=== PATIENT | female | born 1960 | race Two or more races ===

== ENCOUNTER → 2017-10-07 | Outpatient (CLI) | payer BC ==
[~2017-10-07] MED LIST: BCP; LIS5T PO
[2017-10-07 09:21] LABS: Basophils # (auto) 0.1 uL; Basophils % (auto) 0.9 % (0.0-2.0); Eosinophils # (auto) 0.2 uL; Eosinophils % (auto) 2.8 % (0.0-7.0); Hematocrit 39.6 % (36.0-46.0); Hemoglobin 13.2 g/dL (12.2-16.2); Lymphocytes # (auto) 1.7 uL; Lymphocytes % (auto) 26.2 % (10.0-50.0); Mean Corpuscular Hemoglobin 27.4 pg (28.0-32.0); Mean Corpuscular Hgb Conc. 33.4 g/dL (32.0-36.0); Mean Corpuscular Volume 82.2 fL (80.0-100.0); Monocytes # (auto) 0.3 uL; Monocytes % (auto) 4.4 % (0.0-12.0); Neutrophils # (auto) 4.4 uL; Neutrophils % (auto) 65.7 % (37.0-80.0); Nucleated Red Blood Cells % 0.1 %; Platelet Count (auto) 293 10^3/uL (140-450); Red Blood Cells 4.82 10^6/uL (4.0-5.20); Red Cell Distribution Width 14.4 % (11.8-14.3); White Blood Cell 6.7 10^3/uL (4.4-10.8)
[2017-10-07 09:25] LABS: Urine Bacteria NONE SEEN /hpf (None Seen); Urine Blood Negative /uL (Negative); Urine Specific Gravity 1.019 (1.001-1.035); Urine WBC 1 /hpf (0 - 5)
[2017-10-07 10:12] LABS: Cholesterol 205 mg/dL (< 200); HDL Cholesterol 42 mg/dL (40-59); LDL Cholesterol 146 mg/dL (< 100); Triglycerides 182 mg/dL (< 150)
== END | disposition home or self-care (01) ==
LOC: LAB 08:43
PROVIDERS: ATTEND Specialist
DX: R10.9 Unspecified abdominal pain (principal); R79.89 Other specified abnormal findings of blood chemistry
CPT/HCPCS: 36415; 80061; 81001; 83036; 85025; 87086

== ENCOUNTER → 2017-10-28 | Outpatient (CLI) | payer BC | END | disposition home or self-care (01) | LOC: LAB 07:22 | PROVIDERS: ATTEND Specialist | DX: R10.9 Unspecified abdominal pain (principal) | CPT/HCPCS: 36415; 82565; 84520 ==

== ENCOUNTER → 2017-10-30 | Outpatient (CLI) | payer BC | END | disposition home or self-care (01) | LOC: LAB 10:00 | PROVIDERS: ATTEND Specialist | DX: R87.810 Cervical high risk human papillomavirus (HPV) DNA test positive (principal); R87.612 Low grade squamous intraepithelial lesion on cytologic smear of cervix (LGSIL) ==

== ENCOUNTER → 2018-05-29 | Outpatient (CLI) | payer BC ==
[~2018-05-29] MED LIST changes: -BCP; -LIS5T PO; +LISI-646 PO; +METF-370 PO; +PSEU30TA3 PO; +SIMV10TA84 PO
[2018-05-29 08:22] LABS: Basophils # (auto) 0.1 uL; Basophils % (auto) 0.9 % (0.0-2.0); Eosinophils # (auto) 0.2 uL; Eosinophils % (auto) 2.3 % (0.0-7.0); Hematocrit 42.7 % (36.0-46.0); Hemoglobin 14.4 g/dL (12.2-16.2); Lymphocytes # (auto) 2.2 uL; Mean Corpuscular Hemoglobin 27.3 pg (28.0-32.0); Mean Corpuscular Hgb Conc. 33.7 g/dL (32.0-36.0); Monocytes # (auto) 0.3 uL; Monocytes % (auto) 3.8 % (0.0-12.0); Nucleated Red Blood Cells % 0.1 %; Platelet Count (auto) 286 10^3/uL (140-450); Red Blood Cells 5.27 10^6/uL (4.0-5.20); Red Cell Distribution Width 14.7 % (11.8-14.3); White Blood Cell 8.8 10^3/uL (4.4-10.8)
[2018-05-29 08:36] LABS: Urine Bacteria FEW /hpf (None Seen); Urine Blood TRACE /uL (Negative); Urine Mucus FEW (None Seen); Urine Specific Gravity 1.026 (1.001-1.035); Urine WBC 3 /hpf (0 - 5)
[2018-05-29 09:18] LABS: Potassium 3.6 mmol/L (3.5-5.1)
[2018-05-29 09:28] LABS: Albumin 3.7 g/dL (3.4-5.0); BUN/Creatinine Ratio 21.8; Bilirubin, Total 0.4 mg/dL (0.2-1.0); Calcium 8.9 mg/dL (8.5-10.1); Total Protein 7.8 g/dL (6.4-8.2)
== END | disposition home or self-care (01) ==
LOC: LAB 07:03
PROVIDERS: ATTEND Nurse Practitioner
DX: E78.5 Hyperlipidemia, unspecified (principal); R73.09 Other abnormal glucose; I10 Essential (primary) hypertension
CPT/HCPCS: 36415; 80053; 80061; 81001; 82306; 83036; 84443; 85025

== ENCOUNTER → 2018-09-18 | Outpatient (CLI) | payer BC | END | disposition home or self-care (01) | LOC: LAB 15:00 | PROVIDERS: ATTEND Specialist | DX: R87.612 Low grade squamous intraepithelial lesion on cytologic smear of cervix (LGSIL) (principal) ==

== ENCOUNTER → 2018-10-07 | Outpatient (CLI) | payer BC ==
[2018-10-07 08:22] LABS: Basophils # (auto) 0.1 uL; Basophils % (auto) 0.7 % (0.0-2.0); Eosinophils # (auto) 0.2 uL; Eosinophils % (auto) 2.2 % (0.0-7.0); Hematocrit 39.1 % (36.0-46.0); Hemoglobin 13.4 g/dL (12.2-16.2); Lymphocytes # (auto) 1.9 uL; Lymphocytes % (auto) 25.3 % (10.0-50.0); Mean Corpuscular Hgb Conc. 34.3 g/dL (32.0-36.0); Mean Corpuscular Volume 81.8 fL (80.0-100.0); Monocytes # (auto) 0.3 uL; Monocytes % (auto) 4.3 % (0.0-12.0); Neutrophils # (auto) 5.1 uL; Neutrophils % (auto) 67.5 % (37.0-80.0); Nucleated Red Blood Cells % 0.1 %; Platelet Count (auto) 265 10^3/uL (140-450); Red Blood Cells 4.79 10^6/uL (4.0-5.20); Red Cell Distribution Width 14.4 % (11.8-14.3); White Blood Cell 7.6 10^3/uL (4.4-10.8)
[2018-10-07 08:25] LABS: Urine Bacteria NONE SEEN /hpf (None Seen); Urine Blood Negative /uL (Negative); Urine Specific Gravity 1.003 (1.001-1.035); Urine WBC <1 /hpf (0 - 5)
[2018-10-07 08:38] LABS: Albumin 3.7 g/dL (3.4-5.0); Calcium 8.8 mg/dL (8.5-10.1); Potassium 3.3 mmol/L (3.5-5.1)
[2018-10-07 08:43] LABS: BUN/Creatinine Ratio 17.6; Bilirubin, Total 0.4 mg/dL (0.2-1.0); Total Protein 7.4 g/dL (6.4-8.2)
== END | disposition home or self-care (01) ==
LOC: LAB 07:28
PROVIDERS: ATTEND Nurse Practitioner
DX: E11.9 Type 2 diabetes mellitus without complications (principal); E78.5 Hyperlipidemia, unspecified
CPT/HCPCS: 36415; 80053; 80061; 81001; 82043; 82306; 83036; 84443; 85025

== ENCOUNTER 2018-12-12 07:33 | Inpatient (IN) | payer BC ==
[2018-12-09 09:53] LABS: Basophils # (auto) 0.1 uL; Basophils % (auto) 0.9 % (0.0-2.0); Eosinophils # (auto) 0.1 uL; Eosinophils % (auto) 1.5 % (0.0-7.0); Hematocrit 42.8 % (36.0-46.0); Hemoglobin 14.7 g/dL (12.2-16.2); Lymphocytes # (auto) 1.9 uL; Lymphocytes % (auto) 20.4 % (10.0-50.0); Mean Corpuscular Hemoglobin 28.1 pg (28.0-32.0); Mean Corpuscular Hgb Conc. 34.4 g/dL (32.0-36.0); Mean Corpuscular Volume 81.6 fL (80.0-100.0); Monocytes # (auto) 0.3 uL; Monocytes % (auto) 3.7 % (0.0-12.0); Neutrophils # (auto) 6.9 uL; Neutrophils % (auto) 73.5 % (37.0-80.0); Platelet Count (auto) 295 10^3/uL (140-450); Red Blood Cells 5.24 10^6/uL (4.0-5.20); Red Cell Distribution Width 13.9 % (11.8-14.3); White Blood Cell 9.4 10^3/uL (4.4-10.8)
[2018-12-09 10:02] LABS: Urine Bacteria NONE SEEN /hpf (None Seen); Urine Blood Negative /uL (Negative); Urine Specific Gravity 1.015 (1.001-1.035); Urine WBC 2 /hpf (0 - 5)
[2018-12-09 10:07] LABS: Albumin 3.7 g/dL (3.4-5.0); Calcium 9.2 mg/dL (8.5-10.1)
[2018-12-09 10:10] LABS: Bilirubin, Total 0.4 mg/dL (0.2-1.0); Total Protein 8.1 g/dL (6.4-8.2)
[2018-12-09 10:29] LABS: INR < 0.93 (0.9-1.15); Partial Thromboplastin Time 23.8 sec (23.64-32.05)
[~2018-12-12] VITALS: Ht 154.9 cm; Wt 97.3 kg
[~2018-12-12 07:33] MED LIST changes: +GABA300C10 PO
[2018-12-12] MEDS ORDERED: ceFAZolin 1GM/50ML 100 ML IV ONE (08:10)
[2018-12-12] MEDS ORDERED: MEPERIDINE HCL (25 MG/ML) 1ML VIAL ONE (08:16)
[2018-12-12] MEDS ORDERED: SODIUM CHLORIDE LOCK 50 ML ONE (08:16)
[2018-12-12] MEDS ORDERED: fentaNYL CITRATE 100 MCG/2 ML VL ONE ×2 (08:16→09:00)
[2018-12-12] MEDS ORDERED: ROCURONIUM 10MG/ML 10ML VIAL IV ONE (08:16)
[2018-12-12] MEDS ORDERED: MIDAZOLAM HCL 1MG/1ML-2 ML VIAL ONE (08:16)
[2018-12-12] MEDS ORDERED: ONDANSETRON HCL 4 MG/2 ML VIAL ONE (08:16)
[2018-12-12] MEDS ORDERED: KETOROLAC TROMETH 15 mg/ml 1ML VL IV ONE (09:00)
[2018-12-12] MEDS ORDERED: METOCLOPRAMIDE HCL 5MG/ml INJ 2ml VIAL IV ONE (09:00)
[2018-12-12] MEDS ORDERED: LIDOCAINE 2% (LOCAL ANESTH.) PF 5ml SDV ONE (09:01)
[2018-12-12] MEDS ORDERED: LIDOCAINE HCL 2% TOP JELLY 5ML TOP ONE (09:01)
[2018-12-12] MEDS ORDERED: KETOROLAC TROMETH 60MG/2ML VIAL ONE (10:01)
[2018-12-12] MEDS ORDERED: NEOSTIGMINE 1 MG/ML INJ (10mg/10ML VIAL) ONE (10:01)
[2018-12-12] MEDS ORDERED: GLYCOPYRROLATE 0.2 MG/ML 1ML VIAL ONE (10:01)
[2018-12-12] MEDS ORDERED: ACETAMINOPHEN IV 100 ML IV ONE (12:15)
[2018-12-12] MEDS: HYDROmorphone HCL 2 MG/ML VL IV PRN ×6 (12:27→20:08)
--- NOTE | 2018-12-12 13:10 | NUR ---
TRANSFER TO FLOOR TRANSFER TO FLOOR Patient transferred from PACU to floor after report was received. Patient awake and alert with no S/S of SOB/distress. C/O of abdominal pain 6/10 on adult pain scale. Abdominal dressing dry/intact and abdominal binder is in position. SCD's to bilateral lower extremities. Nasal cannula in position, connected to 3L O2. Bed in lowest, locked position with side rails up x2 and call light within reach. Will continue to monitor patient Q1hr and PRN.
[2018-12-12] MEDS: ceFAZolin 1GM/50ML 50 ML IV SCH ×2 (15:31→22:18)
[2018-12-12] MEDS: LACTATED RINGER'S 1,000 ML IV SCH ×2 (15:35→18:09)
[2018-12-12 16:00] VITALS: BP 130/59
--- NOTE | 2018-12-12 17:47 | NUR ---
ROOM TRANSFER Patient transferred from bed 235 to 232 secondary to construction.
[2018-12-12] MEDS: KETOROLAC TROMETH 15 mg/ml 1ML VL IV SCH (18:09)
--- NOTE | 2018-12-12 19:20 | NUR ---
CLOSING NOTE Endorsed care of patient to NOC Maria D MENDOZA.
[2018-12-12] MEDS: FAMOTIDINE 20 MG TAB PO SCH (20:07)
[2018-12-12] MEDS: ONDANSETRON HCL 4 MG/2 ML VIAL IV PRN (20:08)
[2018-12-12 21:40] VITALS: BP 117/67
[2018-12-13] MEDS: KETOROLAC TROMETH 15 mg/ml 1ML VL IV SCH ×2 (00:55→05:15)
[2018-12-13] MEDS: HYDROmorphone HCL 2 MG/ML VL IV PRN (00:56)
[2018-12-13] MEDS: LACTATED RINGER'S 1,000 ML IV SCH ×4 (00:56→21:30)
[2018-12-13 05:00] VITALS: BP 102/51
[2018-12-13] MEDS: ceFAZolin 1GM/50ML 50 ML IV SCH ×3 (05:15→22:00)
[2018-12-13] MEDS: ONDANSETRON HCL 4 MG/2 ML VIAL IV PRN (06:08)
[2018-12-13 06:21] LABS: Potassium 3.2 mmol/L (3.5-5.1)
[2018-12-13 06:27] LABS: Basophils # (auto) 0 uL; Basophils % (auto) 0.3 % (0.0-2.0); Eosinophils # (auto) 0 uL; Hematocrit 32.9 % (36.0-46.0); Hemoglobin 11.4 g/dL (12.2-16.2); Lymphocytes # (auto) 1.2 uL; Lymphocytes % (auto) 7.6 % (10.0-50.0); Mean Corpuscular Hemoglobin 28.2 pg (28.0-32.0); Mean Corpuscular Hgb Conc. 34.6 g/dL (32.0-36.0); Mean Corpuscular Volume 81.6 fL (80.0-100.0); Monocytes # (auto) 0.5 uL; Monocytes % (auto) 3.6 % (0.0-12.0); Neutrophils # (auto) 13.4 uL; Neutrophils % (auto) 88.5 % (37.0-80.0); Platelet Count (auto) 257 10^3/uL (140-450); Red Blood Cells 4.03 10^6/uL (4.0-5.20); Red Cell Distribution Width 13.9 % (11.8-14.3); White Blood Cell 15.2 10^3/uL (4.4-10.8)
[2018-12-13 06:28] LABS: Albumin 2.9 g/dL (3.4-5.0); BUN/Creatinine Ratio 15.7; Bilirubin, Total 0.3 mg/dL (0.2-1.0); Calcium 8.3 mg/dL (8.5-10.1); Total Protein 6.4 g/dL (6.4-8.2)
--- NOTE | 2018-12-13 07:10 | NUR ---
Opening Shift Note Assumed care of patient, awake and alert, sitting up in bed. No S/S of distress/SOB, no pain noted or reported. Respirations are even and unlabored. Updated on POC and instructed to call for assist as needed, pt. verbalized understanding. Bed locked in lowest position, side rails up x 2, call light within reach. Will continue to monitor for changes Q1hr and PRN.
[2018-12-13 09:00] VITALS: BP 98/55
[2018-12-13] MEDS: FAMOTIDINE 20 MG TAB PO SCH (10:08)
[2018-12-13] MEDS: DOCUSATE SOD 100 MG CAP PO SCH ×2 (10:08→21:56)
--- NOTE | 2018-12-13 10:10 | NUR ---
Flores catheter dc'd Order to discontinue flores catheter. Flores dc'd with clean technique following deflation of balloon. Patient tolerated well with no complaints of pain. Continue care.
[2018-12-13] MEDS: IBUPROFEN 800 MG TAB PO PRN (10:12)
[2018-12-13 12:39] VITALS: BP 115/76
[2018-12-13 13:00] VITALS: BP 115/76
--- NOTE | 2018-12-13 14:01 | NUR ---
IV removal and insertion Left hand IV DC'd with clean sterile technique, catheter fully intact. Pressure dressing applied to site. Patient tolerated well. IV insertion IV access obtained, via clean sterile technique by inserting 22 gauge catheter at left forearm after 2 attempt(s). IV secured properly. No trauma to site. Patient tolerated well.
[2018-12-13] MEDS: HYDROcodone-ACET 5/325MG TAB PO PRN ×3 (14:04→21:56)
[2018-12-13 17:00] VITALS: BP 93/62
--- NOTE | 2018-12-13 19:10 | NUR ---
Opening Shift Note Bed side report with Day RN Ember. Assumed care of patient, awake and alert. No S/S of distress/SOB or pain. Instructed on POC and to call for assist PRN, will continue to monitor for changes Q1hr and PRN. Bed locked and in lowest position call light within reach,
--- NOTE | 2018-12-13 20:19 | NUR ---
DRESSING REMOVED Dressing removed from surgical incision, noted dry minimal drainage at sides. pt tolerated procedure well. will continue to monitor
[2018-12-13 22:00] VITALS: BP 102/57
--- NOTE | 2018-12-13 22:01 | NUR ---
PT ROUNDS Assisted pt to the restroom, incision dry and intact will continue to monitor pt.
[2018-12-14] MEDS: HYDROcodone-ACET 5/325MG TAB PO PRN ×5 (02:29→22:39)
[2018-12-14] MEDS: LACTATED RINGER'S 1,000 ML IV SCH ×3 (04:10→17:30)
[2018-12-14 04:33] VITALS: BP 97/59
[2018-12-14] MEDS: ceFAZolin 1GM/50ML 50 ML IV SCH ×3 (05:13→22:38)
--- NOTE | 2018-12-14 07:10 | NUR ---
Opening Shift Note Assumed care of patient, awake and alert, resting in bed. No S/S of distress/SOB, no pain noted or reported. Respirations are even and unlabored. Updated on POC and instructed to call for assist as needed, pt. verbalized understanding. Bed locked in lowest position, side rails up x 2, call light within reach. Will continue to monitor for changes Q1hr and PRN.
[2018-12-14] MEDS: FAMOTIDINE 20 MG TAB PO SCH (09:08)
[2018-12-14] MEDS: DOCUSATE SOD 100 MG CAP PO SCH ×2 (09:08→22:38)
[2018-12-14 09:17] VITALS: BP 117/71
--- NOTE | 2018-12-14 11:03 | NUR ---
NUTRITION CONSULT/ASSESSMENT NOTES Please refer to link notes of nutrition screen form filed under the intervention section of the plan of care for further details. Est. Needs: 1450 kcal to 1750 kcal (15-18 kcal/kgBW), 77 gms to 96 gms pro (0.8-1.0 gms/kgBW). Will continue to monitor pertinent labs and reassess nutrient need prn Thank you for this consult. Addendum: 12/14/18 at [address] Amended: Links added.
[2018-12-14 13:21] VITALS: BP 121/55
--- NOTE | 2018-12-14 14:57 | NUR ---
IV removal Left forearm IV DC'd with clean sterile technique, catheter fully intact. Pressure dressing applied to site. Patient tolerated well.
--- NOTE | 2018-12-14 14:58 | NUR ---
No IV access IV was infiltrated and removed, pt. refused IV insertion at this time. She stated "I would just like a break until later for another IV". Educated on need for IV access, pt. verbalized understanding and continues to refuse re-insertion at this time.
[2018-12-14 17:02] VITALS: BP 101/39
[2018-12-14] MEDS: IBUPROFEN 800 MG TAB PO PRN (18:48)
--- NOTE | 2018-12-14 19:00 | NUR ---
OPENING NOTE Received report from day shift RN. Patient is A&O X's 4 with no s/s of distress. She is sitting on chair at bedside. Her mom is at bedside. Educated patient on POC and to use call light when in need of assistance. Patient verbalized understanding. Will continue to monitor for changes and round hourly/PRN.
[2018-12-14 22:00] VITALS: BP 118/74
--- NOTE | 2018-12-14 22:00 | NUR ---
IV insertion IV access obtained, via clean sterile technique by inserting 22 gauge catheter at left hand. IV secured properly. No trauma to site. Patient tolerated well.
[2018-12-15] MEDS: LACTATED RINGER'S 1,000 ML IV SCH ×3 (00:10→14:17)
[2018-12-15] MEDS: HYDROcodone-ACET 5/325MG TAB PO PRN ×2 (04:00→14:17)
[2018-12-15 05:00] VITALS: BP 100/70
[2018-12-15] MEDS: ceFAZolin 1GM/50ML 50 ML IV SCH ×2 (05:25→14:17)
--- NOTE | 2018-12-15 07:25 | NUR ---
OPENING NOTE Assumed care of patient from NOC RN. Patient awake and alert with no S/S of distress/SOB or pain. Instructed on POC and to call for assist PRN, verbalized understanding. Lower abdominal incision, open to air, star intact. Bed in lowest, locked position with side rails up x2 and call light within reach. Will continue to monitor for changes Q1hr and PRN.
[2018-12-15] MEDS: IBUPROFEN 800 MG TAB PO PRN (08:15)
[2018-12-15 09:00] VITALS: BP 116/71
[2018-12-15] MEDS: FAMOTIDINE 20 MG TAB PO SCH (10:29)
[2018-12-15] MEDS: DOCUSATE SOD 100 MG CAP PO SCH (10:29)
--- NOTE | 2018-12-15 10:31 | NUR ---
OUT OF BED Patient ambulating around unit. No S/S of distress noted.
--- NOTE | 2018-12-15 12:22 | NUR ---
MD BEDSIDE Dr. Valadez at patient's bedside. Assisted MD in removal of abdominal star. Patient tolerated well.
[2018-12-15 13:04] VITALS: BP 101/58
--- NOTE | 2018-12-15 15:02 | NUR ---
DISCHARGE Discharge instructions given as ordered. Encouraged to follow up with PMD and Dr. Valadez as instructed. All questions and concerns addressed. Patient verbalized understanding. Medication reconciliation form completed and copy given to patient. IV removed with catheter intact and pressure dressing applied. Patient taken to vehicle via wheelchair with all personal belongings, accompanied by staff and family member. No distress noted at time of departure.
== END 2018-12-15 15:00 | disposition home or self-care (01) | DRG 743 ==
LOC: SUR 07:33 → EAST 14:43
PROVIDERS: ADMIT Specialist; ATTEND Specialist
PROC: 0UB20ZZ Excision of Bilateral Ovaries, Open Approach (ICD-10-PCS; 2018-12-12)
PROC: 0UB70ZZ Excision of Bilateral Fallopian Tubes, Open Approach (ICD-10-PCS; 2018-12-12)
PROC: 0UT90ZZ Resection of Uterus, Open Approach (ICD-10-PCS; principal; 2018-12-12 09:20)
DX: D25.9 Leiomyoma of uterus, unspecified (principal); G89.29 Other chronic pain; N87.0 Mild cervical dysplasia; E11.9 Type 2 diabetes mellitus without complications; I10 Essential (primary) hypertension; N70.11 Chronic salpingitis; N73.6 Female pelvic peritoneal adhesions (postinfective); E78.00 Pure hypercholesterolemia, unspecified; Z79.84 Long term (current) use of oral hypoglycemic drugs; Z80.0 Family history of malignant neoplasm of digestive organs; Z98.51 Tubal ligation status
CPT/HCPCS: 36415; 80053; 81001; 82962; 83036; 84702; 85025; 85610; 85730; 86850; 86900; 86901; G0378; J0690; J1885; J2001; J2250; J2405

== ENCOUNTER → 2019-01-07 | Outpatient (CLI) | payer BC ==
[2019-01-07 11:41] LABS: Urine Bacteria NONE SEEN /hpf (None Seen); Urine Blood Negative /uL (Negative); Urine Specific Gravity 1.006 (1.001-1.035); Urine WBC 22 /hpf (0 - 5)
== END | disposition home or self-care (01) ==
LOC: LAB 11:15
PROVIDERS: ATTEND Nurse Practitioner
DX: N39.0 Urinary tract infection, site not specified (principal)
CPT/HCPCS: 81001

== ENCOUNTER 2019-01-14 14:25 | Emergency (ER) | payer BC ==
[~2019-01-14] VITALS: Ht 152.4 cm; Wt 89.8 kg
[2019-01-14 15:16] LABS: Urine Bacteria NONE SEEN /hpf (None Seen); Urine Blood Negative /uL (Negative); Urine Specific Gravity 1.009 (1.001-1.035); Urine WBC 4 /hpf (0 - 5)
[2019-01-14 15:52] VITALS: BP 128/57
[2019-01-14] MEDS ORDERED: KETOROLAC TROMETH 60MG/2ML VIAL IM ONE (17:15)
== END 2019-01-14 17:49 | disposition home or self-care (01) ==
LOC: ER 14:26
DX: K76.0 Fatty (change of) liver, not elsewhere classified (principal); K76.89 Other specified diseases of liver; I10 Essential (primary) hypertension; Z90.710 Acquired absence of both cervix and uterus
CPT/HCPCS: 74176; 81001; 96372; 99284; J1885

== ENCOUNTER 2022-04-24 08:35 | Emergency (ER) | payer BC, OTHER ==
[~2022-04-24] VITALS: Ht 154.9 cm; Wt 79.0 kg
[~2022-04-24 08:35] MED LIST changes: -LISI-646 PO; +LISI20TA28 PO
[2022-04-24] MEDS ORDERED: HYDROcodone-ACET 5/325MG TAB PO ONE (10:00)
[2022-04-24] MEDS ORDERED: ONDANSETRON ODT 4 MG TAB PO ONE (10:00)
[2022-04-24] MEDS ORDERED: TAMSULOSIN HYDROCHLORIDE 0.4 MG CAP PO ONE (10:00)
[2022-04-24 10:37] LABS: Basophils # (auto) 0 10 ^3/uL (0-0.2); Basophils % (auto) 0.3 % (0.0-2.0); Eosinophils # (auto) 0 10 ^3/uL (0-0.8); Hematocrit 43.9 % (36.0-46.0); Hemoglobin 14.8 g/dL (12.2-16.2); Lymphocytes # (auto) 0.9 10 ^3/uL (0.4-5.4); Lymphocytes % (auto) 5.8 % (10.0-50.0); Mean Corpuscular Hemoglobin 27.9 pg (28.0-32.0); Mean Corpuscular Hgb Conc. 33.6 g/dL (32.0-36.0); Mean Corpuscular Volume 83.1 fL (80.0-100.0); Monocytes # (auto) 0.3 10 ^3/uL (0-1.3); Monocytes % (auto) 1.7 % (0.0-12.0); Neutrophils # (auto) 14.5 10 ^3/uL (1.6-8.6); Neutrophils % (auto) 92.2 % (37.0-80.0); Nucleated Red Blood Cells % 0.2 %; Red Blood Cells 5.29 10^6/uL (4.0-5.20); Red Cell Distribution Width 13.1 % (11.8-14.3); White Blood Cell 15.7 10^3/uL (4.4-10.8)
[2022-04-24 11:32] LABS: BUN/Creatinine Ratio 12.2; Bilirubin, Total 0.5 mg/dL (0.2-1.0); Calcium 9.3 mg/dL (8.5-10.1); Potassium 3.6 mmol/L (3.5-5.1)
[2022-04-24 14:05] LABS: Urine Specific Gravity 1.019 (1.001-1.035)
[2022-04-24 14:06] LABS: Urine Blood 3+ /uL (Negative)
[2022-04-24] MEDS ORDERED: TAM04C PO (14:48)
[2022-04-24 15:29] VITALS: BP 148/98
[2022-04-24 19:17] LABS: Urine WBC 15-20 /hpf (0 - 5)
[2022-04-24 19:18] LABS: Urine Bacteria FEW /hpf (None Seen)
[2022-04-24 19:19] LABS: Urine Mucus FEW (None Seen)
== END 2022-04-24 15:28 | disposition home or self-care (01) ==
LOC: ER 08:35
DX: N13.30 Unspecified hydronephrosis (principal); N23 Unspecified renal colic; I10 Essential (primary) hypertension; Z90.49 Acquired absence of other specified parts of digestive tract; Z90.710 Acquired absence of both cervix and uterus
CPT/HCPCS: 36415; 74176; 80053; 81001; 85025; Q0162

== ENCOUNTER 2023-02-17 16:03 | Inpatient (IN) | payer OTHER ==
[~2023-02-17] VITALS: Ht 152.4 cm; Wt 79.5 kg
[~2023-02-17 16:03] MED LIST changes: +GABA-1250 PO; -GABA300C10 PO; -LISI20TA28 PO; +LISI20TA56 PO; +SIMV10TA20 PO; -SIMV10TA84 PO; +TAMS-35 PO
[2023-02-17 17:12] LABS: Urine Bacteria FEW /hpf (None Seen); Urine Blood Negative /uL (Negative); Urine Clarity Clear (Clear); Urine Color Yellow (Yellow); Urine Protein, UAD Negative (Negative); Urine Specific Gravity 1.007 (1.001-1.035); Urine Urobilinogen Normal (Negative); Urine WBC 2 /hpf (0 - 5); Urine pH 6.5 (5.0-8.0)
[2023-02-17] MEDS ORDERED: MORPHINE SULFATE 4 MG/ML SYR/VIAL IV ONE (20:45)
[2023-02-17] MEDS ORDERED: SODIUM CHLORIDE 0.9% 1,000 ML IV ONE (20:45)
[2023-02-17] MEDS ORDERED: ONDANSETRON HCL 4 MG/2 ML VIAL IV ONE (20:45)
[2023-02-17] MEDS ORDERED: ACETAMINOPHEN 325 MG TAB PO PRN (21:30)
[2023-02-17] MEDS ORDERED: DEXTROSE (50%) 50ML SYRG IV PRN (21:30)
[2023-02-17] MEDS ORDERED: hydrALAZINE HCL 20 MG/ML VL IV PRN (21:30)
[2023-02-17] MEDS ORDERED: ONDANSETRON HCL 4 MG/2 ML VIAL IV PRN (21:30)
[2023-02-17 21:40] LABS: Basophils # (auto) 0.1 10 ^3/uL (0-0.2); Eosinophils # (auto) 0.3 10 ^3/uL (0-0.8); Hematocrit 42.8 % (36.0-46.0); Hemoglobin 14.9 g/dL (12.2-16.2); Lymphocytes # (auto) 2.9 10 ^3/uL (0.4-5.4); Lymphocytes % (auto) 27.9 % (10.0-50.0); Mean Corpuscular Hemoglobin 28.7 pg (28.0-32.0); Mean Corpuscular Hgb Conc. 34.7 g/dL (32.0-36.0); Mean Corpuscular Volume 82.7 fL (80.0-100.0); Monocytes # (auto) 0.5 10 ^3/uL (0-1.3); Monocytes % (auto) 4.8 % (0.0-12.0); Neutrophils # (auto) 6.6 10 ^3/uL (1.6-8.6); Neutrophils % (auto) 63.3 % (37.0-80.0); Nucleated Red Blood Cells % 0.2 %; Red Blood Cells 5.17 10^6/uL (4.0-5.20); Red Cell Distribution Width 13.3 % (11.8-14.3); White Blood Cell 10.4 10^3/uL (4.4-10.8)
[2023-02-17 21:57] LABS: Alanine Aminotransferase 32 U/L (7-40); Alkaline Phosphatase 130 U/L (46-116); Anion Gap 8 (5-15); Aspartate Aminotransferase 18 U/L (13-40); BUN/Creatinine Ratio 14.7 (10.0-20.0); Blood Urea Nitrogen 11 mg/dL (9-23); Calcium 9.3 mg/dL (8.7-10.4); Carbon Dioxide 27 mmol/L (20-30); Chloride 107 mmol/L (98-107); Glucose 96 mg/dL (74-106); Lipase 44 U/L (12-53); Potassium 3.2 mmol/L (3.5-5.1); Sodium 142 mmol/L (136-145)
[2023-02-17 21:58] LABS: Albumin 4.6 g/dL (3.2-4.8); Bilirubin, Total 0.4 mg/dL (0.2-1.0); Total Protein 7.7 g/dL (5.7-8.2)
[2023-02-17] MEDS ORDERED: ATORVASTATIN 20 MG TAB PO SCH (22:00)
[2023-02-17] MEDS: InsuLIN REG 1unit/0.01ml Soln (100units/ml) SC SCH (22:00)
[2023-02-17] MEDS: ACCU-CHEK COMFORT CURVE STRIP VI SCH (22:29)
[2023-02-17] MEDS: cefTRIAXone 1GM/50ML D5W 50 ML IV SCH (22:35)
[2023-02-18] MEDS ORDERED: HYDROcodone-ACET 5/325MG TAB PO PRN (01:30)
[2023-02-18] MEDS ORDERED: MORPHINE SULFATE INJ 2 MG/ml SYRG IV PRN (01:30)
[2023-02-18 04:50] LABS: Chloride 109 mmol/L (98-107); Potassium 3.9 mmol/L (3.5-5.1); Sodium 140 mmol/L (136-145)
[2023-02-18 04:51] LABS: Anion Gap 5 (5-15); Calcium 8.9 mg/dL (8.7-10.4); Carbon Dioxide 26 mmol/L (20-30)
[2023-02-18 04:56] LABS: BUN/Creatinine Ratio 11.8 (10.0-20.0); Blood Urea Nitrogen 8 mg/dL (9-23); Glucose 113 mg/dL (74-106)
[2023-02-18] MEDS: InsuLIN REG 1unit/0.01ml Soln (100units/ml) SC SCH ×2 (06:40→11:26)
[2023-02-18] MEDS: ACCU-CHEK COMFORT CURVE STRIP VI SCH ×2 (06:40→11:26)
[2023-02-18 07:35] VITALS: PULSE 72; RESP 13; O2SAT 95
[2023-02-18] MEDS: cefTRIAXone 1GM/50ML D5W 50 ML IV SCH (09:00)
[2023-02-18 09:01] LABS: Urine Bacteria NONE SEEN /hpf (None Seen); Urine Blood Negative /uL (Negative); Urine Clarity Clear (Clear); Urine Color Yellow (Yellow); Urine Protein, UAD Negative (Negative); Urine Specific Gravity 1.012 (1.001-1.035); Urine Urobilinogen Normal (Negative); Urine WBC 2 /hpf (0 - 5)
[2023-02-18 10:00] VITALS: BP 152/76; PULSE 75; RESP 20; TEMP 98; O2SAT 96
[2023-02-18] MEDS ORDERED: LISINOPRIL 20 MG TAB PO SCH (10:00)
[2023-02-18] MEDS ORDERED: MANNITOL FTV 25% 12.5 GM/50 ML 50 ML IV ONE (10:15)
[2023-02-18 13:00] VITALS: BP 120/75; PULSE 74; RESP 17; TEMP 98; O2SAT 94
[2023-02-18] MEDS ORDERED: TAMSULOSIN HYDROCHLORIDE 0.4 MG CAP PO SCH (18:00)
== END 2023-02-18 15:57 | disposition home or self-care (01) | DRG 690 ==
LOC: ER 16:03 → OVERFLOW 21:28 → WEST WING 02-18 09:48
PROVIDERS: ADMIT Nurse Practitioner; ATTEND Nurse Practitioner Acute Care
DX: N13.6 Pyonephrosis (principal); E11.9 Type 2 diabetes mellitus without complications; I10 Essential (primary) hypertension; E66.01 Morbid (severe) obesity due to excess calories; Z79.899 Other long term (current) drug therapy; Z87.442 Personal history of urinary calculi; Z87.891 Personal history of nicotine dependence; Z90.710 Acquired absence of both cervix and uterus; Z68.34 Body mass index [BMI] 34.0-34.9, adult; Z90.49 Acquired absence of other specified parts of digestive tract
CPT/HCPCS: 36415; 74176; 80048; 80053; 81001; 82962; 83690; 83880; 84484; 85025; 96361; 96365; 96375; G0378; J0696; J2405

== ENCOUNTER 2023-11-14 08:11 | Inpatient (IN) | payer OTHER ==
[~2023-11-14] VITALS: Ht 152.4 cm; Wt 86.7 kg
[2023-11-14] MEDS: SODIUM CHLORIDE 0.9% 1,000 ML IVB ONE (09:16)
[2023-11-14] MEDS: KETOROLAC TROMETH 30 MG/ML 1ML VIAL IV ONE (09:16)
[2023-11-14 09:24] LABS: Urine Bacteria None Seen /hpf (None Seen)
[2023-11-14 10:02] LABS: Chloride 105 mmol/L (98-107); Potassium 3.3 mmol/L (3.5-5.1); Sodium 141 mmol/L (136-145)
[2023-11-14 10:02] LABS: Urine Blood 1+ /uL (Negative); Urine Clarity Turbid (Clear); Urine Color Light-Yellow (Yellow); Urine Protein, UAD Negative (Negative); Urine Specific Gravity 1.015 (1.001-1.035); Urine Urobilinogen Normal (Negative); Urine WBC 5 /hpf (0 - 5)
[2023-11-14 10:03] LABS: Anion Gap 7 (5-15); Basophils # (auto) 0.1 10 ^3/uL (0-0.2); Basophils % (auto) 0.6 % (0.0-2.0); Carbon Dioxide 29 mmol/L (20-30); Eosinophils # (auto) 0.1 10 ^3/uL (0-0.8); Eosinophils % (auto) 0.8 % (0.0-7.0); Hematocrit 42.5 % (36.0-46.0); Hemoglobin 14.7 g/dL (12.2-16.2); Lymphocytes # (auto) 2.3 10 ^3/uL (0.4-5.4); Lymphocytes % (auto) 17.4 % (10.0-50.0); Mean Corpuscular Hemoglobin 28.8 pg (28.0-32.0); Mean Corpuscular Hgb Conc. 34.6 g/dL (32.0-36.0); Mean Corpuscular Volume 83.1 fL (80.0-100.0); Monocytes # (auto) 0.7 10 ^3/uL (0-1.3); Monocytes % (auto) 5.5 % (0.0-12.0); Neutrophils # (auto) 9.9 10 ^3/uL (1.6-8.6); Neutrophils % (auto) 75.7 % (37.0-80.0); Red Blood Cells 5.12 10^6/uL (4.0-5.20); Red Cell Distribution Width 13.1 % (11.8-14.3); White Blood Cell 13.1 10^3/uL (4.4-10.8)
[2023-11-14 10:04] LABS: Calcium 9.8 mg/dL (8.5-10.1)
[2023-11-14 10:08] LABS: BUN/Creatinine Ratio 10.7 (10.0-20.0); Blood Urea Nitrogen 11 mg/dL (9-23); Glucose 106 mg/dL (74-106)
[2023-11-14 10:19] VITALS: PULSE 106; RESP 20; O2SAT 97
[2023-11-14] MEDS ORDERED: KETOROLAC TROMETH 30 MG/ML 1ML VIAL IV PRN (10:45)
[2023-11-14] MEDS ORDERED: ONDANSETRON HCL 4 MG/2 ML VIAL IV PRN (10:45)
[2023-11-14] MEDS ORDERED: DOCUSATE SOD 100 MG CAP PO PRN (10:45)
[2023-11-14] MEDS: SODIUM CHLORIDE 0.9% 1,000 ML IV SCH (11:29)
[2023-11-14] MEDS: TAMSULOSIN HYDROCHLORIDE 0.4 MG CAP PO ONE (11:29)
[2023-11-14 11:30] VITALS: PULSE 92; RESP 14; O2SAT 98
[2023-11-14] MEDS: MANNITOL FTV 25% 12.5 GM/50 ML 50 ML IV ONE (12:13)
[2023-11-14] MEDS: cefTRIAXone 1GM/50ML D5W 50 ML IV ONE (15:23)
[2023-11-14] MEDS: POTASSIUM EFFERVESENT TAB 25 MEQ PO ONE (15:23)
[2023-11-14] MEDS: TAMSULOSIN HYDROCHLORIDE 0.4 MG CAP PO SCH (17:57)
[2023-11-14 17:58] VITALS: BP 135/70; PULSE 18; PULSE 83; RESP 18; TEMP 98.3; O2SAT 95
[2023-11-14] MEDS: MORPHINE SULFATE INJ 2 MG/ml SYRG IV PRN (20:34)
[2023-11-14 21:00] VITALS: BP 128/60; PULSE 87; RESP 20; TEMP 98.3; O2SAT 94
[2023-11-14] MEDS: PRAVASTATIN SODIUM 20 MG TAB PO SCH (21:28)
[2023-11-15 01:00] VITALS: BP 123/67; PULSE 86; RESP 20; TEMP 98.1; O2SAT 94
[2023-11-15 05:00] VITALS: BP 137/65; PULSE 87; RESP 20; TEMP 98.2; O2SAT 94
[2023-11-15 06:20] LABS: Basophils # (auto) 0 10 ^3/uL (0-0.2); Basophils % (auto) 0.5 % (0.0-2.0); Eosinophils # (auto) 0.2 10 ^3/uL (0-0.8); Eosinophils % (auto) 2.9 % (0.0-7.0); Hematocrit 39.1 % (36.0-46.0); Hemoglobin 13.7 g/dL (12.2-16.2); Lymphocytes # (auto) 2.1 10 ^3/uL (0.4-5.4); Lymphocytes % (auto) 26.9 % (10.0-50.0); Mean Corpuscular Hemoglobin 29.6 pg (28.0-32.0); Mean Corpuscular Hgb Conc. 35.2 g/dL (32.0-36.0); Mean Corpuscular Volume 84.1 fL (80.0-100.0); Monocytes # (auto) 0.4 10 ^3/uL (0-1.3); Monocytes % (auto) 4.6 % (0.0-12.0); Neutrophils % (auto) 65.1 % (37.0-80.0); Nucleated Red Blood Cells % 0.1 %; Red Blood Cells 4.65 10^6/uL (4.0-5.20); Red Cell Distribution Width 13.5 % (11.8-14.3); White Blood Cell 7.7 10^3/uL (4.4-10.8)
[2023-11-15 06:39] LABS: Alanine Aminotransferase 28 U/L (7-40); Alkaline Phosphatase 111 U/L (46-116); Anion Gap 5 (5-15); Calcium 9.4 mg/dL (8.7-10.4); Carbon Dioxide 27 mmol/L (20-30); Chloride 108 mmol/L (98-107); Potassium 3.6 mmol/L (3.5-5.1); Sodium 140 mmol/L (136-145)
[2023-11-15 06:40] LABS: Glucose 131 mg/dL (74-106)
[2023-11-15 06:41] LABS: BUN/Creatinine Ratio 10.8 (10.0-20.0); Blood Urea Nitrogen 7 mg/dL (9-23)
[2023-11-15 06:42] LABS: Albumin 4.1 g/dL (3.2-4.8)
[2023-11-15 06:43] LABS: Bilirubin, Total 0.6 mg/dL (0.2-1.0); Total Protein 6.9 g/dL (5.7-8.2)
[2023-11-15 07:08] LABS: Aspartate Aminotransferase 15 U/L (13-40)
[2023-11-15 08:00] VITALS: PULSE 75; RESP 16
[2023-11-15] MEDS: cefTRIAXone 1GM/50ML D5W 50 ML IV SCH (08:57)
[2023-11-15 09:00] VITALS: BP 150/51; PULSE 81; RESP 18; TEMP 98.5; O2SAT 95
[2023-11-15] MEDS: LISINOPRIL 20 MG TAB PO SCH (09:01)
[2023-11-15 13:00] VITALS: BP 149/80; PULSE 84; RESP 20; TEMP 98; O2SAT 95
[2023-11-15 13:46] VITALS: BP 150/51; TEMP 36.9
== END 2023-11-15 14:45 | disposition home or self-care (01) | DRG 694 ==
LOC: ER 08:11 → OVERFLOW 10:40 → WEST WING 18:03
PROVIDERS: ADMIT Nurse Practitioner Family; ATTEND Internal Medicine Geriatric Medicine
DX: N13.2 Hydronephrosis with renal and ureteral calculous obstruction (principal); N17.9 Acute kidney failure, unspecified; E87.6 Hypokalemia; K76.0 Fatty (change of) liver, not elsewhere classified; I10 Essential (primary) hypertension; E78.5 Hyperlipidemia, unspecified; K57.30 Diverticulosis of large intestine without perforation or abscess without bleeding; D72.829 Elevated white blood cell count, unspecified; K76.89 Other specified diseases of liver; Z87.442 Personal history of urinary calculi; Z90.710 Acquired absence of both cervix and uterus; Z90.49 Acquired absence of other specified parts of digestive tract; Z83.3 Family history of diabetes mellitus
CPT/HCPCS: 36415; 74176; 80048; 80053; 81001; 83735; 85025; 93005; 96361; 96365; 96367; 96375; G0378; J1885

== ENCOUNTER 2023-11-24 06:33 | Inpatient (IN) | payer OTHER ==
[~2023-11-24] VITALS: Ht 152.4 cm; Wt 77.7 kg
[2023-11-24 07:43] LABS: Urine Bacteria None Seen /hpf (None Seen)
[2023-11-24 07:46] LABS: Basophils # (auto) 0 10 ^3/uL (0-0.2); Basophils % (auto) 0.3 % (0.0-2.0); Eosinophils # (auto) 0.1 10 ^3/uL (0-0.8); Eosinophils % (auto) 0.5 % (0.0-7.0); Hematocrit 43.6 % (36.0-46.0); Lymphocytes # (auto) 1.4 10 ^3/uL (0.4-5.4); Lymphocytes % (auto) 10.3 % (10.0-50.0); Mean Corpuscular Hemoglobin 28.7 pg (28.0-32.0); Mean Corpuscular Hgb Conc. 34.5 g/dL (32.0-36.0); Mean Corpuscular Volume 83.4 fL (80.0-100.0); Monocytes # (auto) 0.7 10 ^3/uL (0-1.3); Monocytes % (auto) 4.9 % (0.0-12.0); Neutrophils # (auto) 11.8 10 ^3/uL (1.6-8.6); Nucleated Red Blood Cells % 0.1 %; Red Blood Cells 5.23 10^6/uL (4.0-5.20); Red Cell Distribution Width 13.3 % (11.8-14.3)
[2023-11-24 07:53] LABS: Urine Blood 1+ /uL (Negative); Urine Clarity Clear (Clear); Urine Color Light-Yellow (Yellow); Urine Protein, UAD TRACE (Negative); Urine Specific Gravity 1.017 (1.001-1.035); Urine Urobilinogen Normal (Negative); Urine WBC 2 /hpf (0 - 5)
[2023-11-24 07:58] LABS: Chloride 106 mmol/L (98-107); Potassium 3.7 mmol/L (3.5-5.1); Sodium 140 mmol/L (136-145)
[2023-11-24 07:59] LABS: Anion Gap 7 (5-15); Calcium 9.9 mg/dL (8.5-10.1); Carbon Dioxide 27 mmol/L (20-30)
[2023-11-24 08:04] LABS: BUN/Creatinine Ratio 10.2 (10.0-20.0); Blood Urea Nitrogen 11 mg/dL (9-23); Glucose 172 mg/dL (74-106)
[2023-11-24 09:00] VITALS: PULSE 104
[2023-11-24] MEDS: KETOROLAC TROMETH 30 MG/ML 1ML VIAL IV ONE (09:22)
[2023-11-24] MEDS: SODIUM CHLORIDE 0.9% 1,000 ML IV ONE ×2 (09:23→12:54)
[2023-11-24] MEDS: TAMSULOSIN HYDROCHLORIDE 0.4 MG CAP PO ONE (09:23)
[2023-11-24] MEDS: ONDANSETRON HCL 4 MG/2 ML VIAL IV ONE (09:23)
[2023-11-24] MEDS: cefTRIAXone 1GM/50ML D5W 50 ML IV ONE (09:51)
[2023-11-24] MEDS ORDERED: ACETAMINOPHEN 325 MG TAB PO PRN (12:30)
[2023-11-24] MEDS ORDERED: ONDANSETRON HCL 4 MG/2 ML VIAL IV PRN (12:30)
[2023-11-24] MEDS ORDERED: KETOROLAC TROMETH 30 MG/ML 1ML VIAL IV PRN (12:30)
[2023-11-24] MEDS: HYDROcodone-ACET 5/325MG TAB PO PRN (15:38)
[2023-11-24 17:52] VITALS: BP 136/75; PULSE 88; RESP 16; TEMP 98; O2SAT 94
[2023-11-24 18:22] VITALS: PULSE 90; RESP 16
[2023-11-24 20:00] VITALS: PULSE 99; RESP 18; O2SAT 96
[2023-11-24 21:00] VITALS: BP 141/87; PULSE 99; RESP 18; TEMP 98.4; O2SAT 96
[2023-11-24] MEDS: PRAVASTATIN SODIUM 20 MG TAB PO SCH (22:00)
[2023-11-24] MEDS: GABAPENTIN 300 MG CAP PO SCH (22:00)
[2023-11-25] VITALS (8 sets, daily range): BP systolic 107–138; BP diastolic 50–68; PULSE 75–99; RESP 17–20; TEMP 97.9–98.8; O2SAT 93–95
[2023-11-25 06:59] LABS: Basophils # (auto) 0.1 10 ^3/uL (0-0.2); Basophils % (auto) 0.7 % (0.0-2.0); Eosinophils # (auto) 0.3 10 ^3/uL (0-0.8); Eosinophils % (auto) 2.6 % (0.0-7.0); Hematocrit 39.1 % (36.0-46.0); Hemoglobin 13.5 g/dL (12.2-16.2); Lymphocytes # (auto) 1.9 10 ^3/uL (0.4-5.4); Lymphocytes % (auto) 19.1 % (10.0-50.0); Mean Corpuscular Hemoglobin 29.1 pg (28.0-32.0); Mean Corpuscular Hgb Conc. 34.6 g/dL (32.0-36.0); Mean Corpuscular Volume 84.2 fL (80.0-100.0); Monocytes # (auto) 0.6 10 ^3/uL (0-1.3); Monocytes % (auto) 5.7 % (0.0-12.0); Neutrophils # (auto) 7.3 10 ^3/uL (1.6-8.6); Neutrophils % (auto) 71.9 % (37.0-80.0); Nucleated Red Blood Cells % 0.1 %; Red Blood Cells 4.64 10^6/uL (4.0-5.20); Red Cell Distribution Width 13.3 % (11.8-14.3); White Blood Cell 10.2 10^3/uL (4.4-10.8)
[2023-11-25 07:08] LABS: Alanine Aminotransferase 25 U/L (7-40); Albumin 4.1 g/dL (3.2-4.8); Alkaline Phosphatase 108 U/L (46-116); Anion Gap 8 (5-15); Aspartate Aminotransferase 16 U/L (13-40); BUN/Creatinine Ratio 9.7 (10.0-20.0); Bilirubin, Total 0.8 mg/dL (0.2-1.0); Blood Urea Nitrogen 7 mg/dL (9-23); Calcium 9.3 mg/dL (8.5-10.1); Carbon Dioxide 25 mmol/L (20-30); Chloride 106 mmol/L (98-107); Glucose 122 mg/dL (74-106); Potassium 3.4 mmol/L (3.5-5.1); Sodium 139 mmol/L (136-145); Total Protein 6.7 g/dL (5.7-8.2)
[2023-11-25] MEDS: cefTRIAXone 1GM/50ML D5W 50 ML IV SCH (11:28)
[2023-11-25] MEDS: LISINOPRIL 20 MG TAB PO SCH (11:28)
[2023-11-25] MEDS: ENOXAPARIN SOD 40 MG/0.4 ML SYRINGE SC SCH (11:28)
[2023-11-25] MEDS: TAMSULOSIN HYDROCHLORIDE 0.4 MG CAP PO SCH (11:29)
[2023-11-25] MEDS: POTASSIUM CHL 20 Meq TABLET PO ONE (17:06)
[2023-11-25] MEDS: SODIUM CHLORIDE 0.9% 1,000 ML IV SCH (17:07)
[2023-11-26 05:00] VITALS: BP 131/60; PULSE 79; RESP 17; TEMP 98.4; O2SAT 96
[2023-11-26 06:38] LABS: Basophils # (auto) 0.1 10 ^3/uL (0-0.2); Basophils % (auto) 0.6 % (0.0-2.0); Eosinophils # (auto) 0.3 10 ^3/uL (0-0.8); Eosinophils % (auto) 3.4 % (0.0-7.0); Hematocrit 37.8 % (36.0-46.0); Hemoglobin 13.1 g/dL (12.2-16.2); Lymphocytes # (auto) 2.6 10 ^3/uL (0.4-5.4); Lymphocytes % (auto) 29.4 % (10.0-50.0); Mean Corpuscular Hemoglobin 29.1 pg (28.0-32.0); Mean Corpuscular Hgb Conc. 34.5 g/dL (32.0-36.0); Mean Corpuscular Volume 84.4 fL (80.0-100.0); Monocytes # (auto) 0.6 10 ^3/uL (0-1.3); Monocytes % (auto) 6.3 % (0.0-12.0); Neutrophils # (auto) 5.4 10 ^3/uL (1.6-8.6); Neutrophils % (auto) 60.3 % (37.0-80.0); Nucleated Red Blood Cells % 0.1 %; Red Blood Cells 4.48 10^6/uL (4.0-5.20); Red Cell Distribution Width 13.3 % (11.8-14.3)
[2023-11-26 06:40] LABS: Anion Gap 6 (5-15); Carbon Dioxide 26 mmol/L (20-30); Chloride 109 mmol/L (98-107); Potassium 3.5 mmol/L (3.5-5.1); Sodium 141 mmol/L (136-145)
[2023-11-26 06:41] LABS: Calcium 9.1 mg/dL (8.7-10.4)
[2023-11-26 06:46] LABS: BUN/Creatinine Ratio 11.9 (10.0-20.0); Blood Urea Nitrogen 8 mg/dL (9-23); Glucose 99 mg/dL (74-106)
[2023-11-26 08:00] VITALS: PULSE 88
[2023-11-26 09:00] VITALS: BP 135/66; PULSE 79; RESP 18; TEMP 98.2; O2SAT 95
[2023-11-26 13:00] VITALS: BP 126/72; PULSE 81; RESP 18; TEMP 98.2; O2SAT 96
[2023-11-26 16:30] VITALS: BP 132/68; PULSE 82; RESP 17; TEMP 98.3; O2SAT 97
== END 2023-11-26 17:33 | disposition home or self-care (01) | DRG 694 ==
LOC: ER 06:35 → OVERFLOW 12:30 → WEST WING 17:40
PROVIDERS: ADMIT Nurse Practitioner Family; ATTEND Internal Medicine
DX: N13.2 Hydronephrosis with renal and ureteral calculous obstruction (principal); R65.10 Systemic inflammatory response syndrome (SIRS) of non-infectious origin without acute organ dysfunction; I10 Essential (primary) hypertension; E87.6 Hypokalemia; K76.0 Fatty (change of) liver, not elsewhere classified; E66.9 Obesity, unspecified; Z90.710 Acquired absence of both cervix and uterus; Z83.3 Family history of diabetes mellitus; Z68.33 Body mass index [BMI] 33.0-33.9, adult; Z79.899 Other long term (current) drug therapy; Z90.49 Acquired absence of other specified parts of digestive tract
CPT/HCPCS: 36415; 74018; 80048; 80053; 81001; 82360; 85025; 87086; 96365; 96375; G0378; J1885; J2405